=== PATIENT | female | born 1960 | race Caucasian/White ===

== ENCOUNTER 2021-05-19 12:31 | Emergency (ER) | payer OTHER, SELFPAY ==
[2021-05-19 12:31] VITALS: BP 187/94; PULSE 87; RESP 20; TEMP 36.9; O2SAT 97; BMI 30.5
--- NOTE | 2021-05-19 13:05 | HMH.EDUTC ---
[facility] [place] Clinical Impression: Right sided sciatica Disposition: Home, Self-Care Condition on Discharge: Good Instructions: DI for Back Pain With Sciatica Additional Instructions: Sciatic stretches Prescriptions: methylPREDNISolone [Medrol 4mg tab] 4 mg PO DIRECTED #21 tab Transmission Status: Pending to [facility] Tizanidine HCl [Zanaflex 4mg tablet] 4 mg PO Q8H PRN 10 Days #30 tab PRN Reason: back pain Transmission Status: Pending to [facility] Referrals: Provider,Referral, [Primary Care Provider] - Time of Disposition: 13:09 Medical Decision Making - [place] Inquiry Pt receiving controlled substance: No [facility] [place] - General Stated complaint: numbness in leg/foot Time Seen by Provider: 05/19/21 13:05 - History of Present Illness Provider Complaint: Numbness and tingling in right foot X 3 weeks. Starts in low back, into right buttock and down back of leg. She can feel when she touches her leg but at the same time it fells like it has fallen asleep. Started after she had a cold and coughed a lot. Feels better if she arches her back. 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 Has history of HTN. Did not take blood pressure this am. Denies headache, chest pain, vertigo, dyspnea. Onset (ago): week(s) (3) Location: right, lower extremity Quality: burning, other (numbness) Relieving factors: none Exacerbating factors: none Treatments prior to arrival: none - Related Data Previous Rx's Medication Instructions Recorded Tizanidine HCl [Zanaflex 4mg 4 mg PO Q8H PRN 10 Days #30 tab 05/19/21 tablet] methylPREDNISolone [Medrol 4mg 4 mg PO DIRECTED #21 tab 05/19/21 tab] [facility] History - Hepatitis A Screen Attestation statement:: This patient has been screened for Hepatitis A risk factors. I have reviewed the patient's past medical history: Yes ROS Obtained: Yes All systems reviewed & no additional complaints - Musculoskeletal Musculoskeletal: Reports as per HPI, Reports back pain, Reports numbness, Reports radiating pain into limb Physical Exam - General General appearance: alert, in no apparent distress - Head Head exam: normocephalic - Eye Eye exam: Present: PERRL - Chest Chest inspection: Present: normal inspection, symmetric chest wall rise - Respiratory Respiratory exam: Present: normal lung sounds bilaterally - Cardiovascular Cardiovascular exam: Present: regular rate, normal rhythm - Extremities Exam Extremities exam: Present: normal inspection, full ROM, normal capillary refill. Absent: pedal edema, joint swelling - Back Exam Back exam: Present: normal inspection, full ROM, vertebral tenderness, sciatic notch tenderness (R), straight leg raise (R) - Neurological Exam Neurological exam: Present: alert, oriented X3 - Psychiatric Psychiatric exam: Present: normal affect, normal mood - Skin Skin exam: Present: warm, dry, intact, normal color
[2021-05-19 13:17] VITALS: BP 187/94; PULSE 87; RESP 20; TEMP 36.9; O2SAT 97
== END 2021-05-19 13:18 | disposition home or self-care (01) ==
PROVIDERS: Emergency Provider Physician Assistant
DX: M54.31 Sciatica, right side (principal)
CPT/HCPCS: 99202; G0463

== ENCOUNTER → 2021-05-30 11:51 | Outpatient (CLI) | payer OTHER, SELFPAY ==
--- NOTE | 2021-05-30 11:58 | XR_ITS ---
PROCEDURE: XR FOOT WT BEARING RT 3V CLINICAL INDICATION: R Foot pain COMPARISON: No exams were available for comparison FINDINGS: There is hallux valgus with bunion formation at the distal aspect of the 1st metatarsal. Mild osteoarthritic changes the tarsal metatarsal junction. Prominent calcaneal spur. No fracture or dislocation. Other findings:None. IMPRESSION: Mild hallux valgus with bunion formation and mild degenerative changes Dictated by: Beck White MD 05/30/2021 12:23 Beck White MD in [place] 05/30/2021 12:23
[2021-05-30 14:47] LABS: Anion Gap 12.5 mEq/L (5-15); Blood Urea Nitrogen 15 mg/dl (7-17); Carbon Dioxide 28 mmol/L (22.0-30.0); Chloride 109 mmol/L (98-107); Potassium 4.5 mmoL/L (3.5-5.1); Sodium 145 mmol/L (136-145)
[2021-05-30 14:48] LABS: Alanine Aminotransferase 48 U/L (12-78); Albumin Level 4.5 g/dl (3.5-5.0); Albumin/Globulin Ratio 1.7 (1.1-1.8); Alkaline Phosphatase 138 U/L (38-126); Aspartate Amino Transferase 33 U/L (14-36); Bilirubin,Total 0.5 mg/dl (0.2-1.3); Calcium 9.6 mg/dl (8.4-10.2); Chol/HDL Ratio 5.8 (1-3.5); Cholesterol 273 mg/dl (140-200); Estimated Glomerular Filt Rate 72 ml/min (>60); GFR (African American) 88 ML/MIN (>60); Globulin 2.6 g/dL (1.3-3.2); Glucose 97 mg/dl (74-100); HDL Cholesterol 47 mg/dl (40-60); Total Protein,Serum 7.1 g/dl (6.3-8.2); Triglycerides 224 mg/dl (30-150); VLDL Cholesterol 45 mg/dL (0-40)
[2021-05-30 14:58] LABS: Direct LDL Cholesterol 172.53 mg/dL (100-129)
[2021-05-30 15:07] LABS: T4 (Thyroxine) 11.9 ug/dl (5.53-11.0)
[2021-05-30 15:15] LABS: Basophils # 0.2 K/mm3 (0-0.2); Basophils % 1.6 % (0.1-2.0); Eosinophils # 0.2 K/mm3 (0.0-0.4); Eosinophils % 2.1 % (0.1-12.0); Hematocrit 46.9 % (37.0-47.0); Hemoglobin 15.3 g/dL (12.2-16.2); Lymphocytes # 2.9 K/mm3 (0.7-4.5); Lymphocytes % 28.4 % (10-50); Mean Corpuscular HGB Conc 32.7 g/dL (31.8-35.4); Mean Corpuscular Volume 88.6 fl (81-99); Mean Platelet Volume 11.6 fl (7.4-10.4); Monocytes # 0.5 K/mm3 (0.1-1.0); Monocytes % 5.1 % (1.7-9.3); Neutrophils # 6.4 K/mm3 (1.8-7.8); Neutrophils % 62.7 % (37.0-80.0); Platelet Count 179 K/mm3 (142-424); Red Blood Count 5.29 M/mm3 (4.20-5.40); White Blood Count 10.2 K/mm3 (4.8-10.8)
[2021-05-30 15:20] LABS: Thyroid Stimulating Hormone 0.99 uIU/mL (0.465-4.68)
== END ==
PROVIDERS: PCP Nurse Practitioner Family; Visit Provider Nurse Practitioner Family
DX: M79.671 Pain in right foot (principal); M79.604 Pain in right leg
CPT/HCPCS: 73630; 80053; 80061; 84436; 84443; 85025

== ENCOUNTER 2024-07-29 13:57 | Outpatient (CLI) | payer OTHER, SELFPAY ==
--- NOTE | 2024-07-29 | CA_ITS ---
FINAL REPORT TECHNIQUE: Graded compression, spectral analysis and ultrasound images of the venous system of the upper extremity were obtained. CLINICAL HISTORY: KNOT LAT MID FOREARM,NKI,NON-TENDER,SMOKER FINDINGS: The jugular vein, subclavian vein, axillary vein, brachial vein, cephalic vein and basilic venous system are fully compressible and demonstrate no evidence of thrombosis. IMPRESSION: No evidence of thrombosis of the venous system of the left upper extremity. Reviewed, Interpreted and Dictated by Benson Molina MD Transcribed by Felisha Alexis Authenticated and . [facility]
== END 2024-07-29 23:59 | disposition home or self-care (01) ==
LOC: RT 13:58
PROVIDERS: PCP Nurse Practitioner Family; Visit Provider Nurse Practitioner Family
DX: R60.0 Localized edema (principal)
CPT/HCPCS: 93971